=== PATIENT | female | born 1970 | race Caucasian/White ===

== ENCOUNTER 2017-05-19 09:53 | Emergency (ER) | payer BC ==
[2017-05-19 10:16] VITALS: BP 146/86
--- NOTE | 2017-05-19 10:57 | RAD ---
Indication: Left foot pain. 3 views of left foot demonstrates no fracture. No abnormal erosions are noted. IMPRESSION: No fracture of the left foot is noted.
--- NOTE | 2017-05-19 11:58 | UC ---
Lower Extremity/Ankle HPI - HPI Summary HPI Summary: 46 female presents to [facility] with complaints of left foot pain that has been ongoing for the past 3 days. Patient states she has had intermittent foot pains on and off however they have worsened over the past couple of days. Patient states she is walking and on her feet frequently when at work. She admits to swelling. Pain has increased over the past couple of days, making it difficulty for her to bear weight and walk. Patient denies erythema and ecchymosis. No known trauma or injury. No other complaints. No PMHx. Tried taking an aspirin without much relief. Has been icing which helps. Denies numbness/tingling. - History of Current Complaint Chief Complaint: UCLowerExtremity Stated Complaint: LEFT FOOT PAIN Time Seen by Provider: 05/19/17 10:50 Hx Obtained From: Patient Hx Last Menstrual Period: 12/22/13 Onset/Duration: Sudden Onset, Lasting Days, Still Present, Worse Since Severity Initially: Mild Severity Currently: Moderate Pain Intensity: 8 Pain Scale Used: 0-10 Numeric Aggravating Factor(s): Standing, Ambulation Alleviating Factor(s): Rest, Elevation, Ice Able to Bear Weight: Yes - Risk Factors Gout Risk Factors: Age Over 40 DVT Risk Factors: Smoking - previous history over 10 years ago Septic Arthritis Risk Factor: Negative - Allergies/Home Medications Allergies/Adverse Reactions: Allergies Allergy/AdvReac Type Severity Reaction Status Date / Time No Known Allergies Allergy Verified 05/19/17 10:16 Home Medications: Home Medications Omeprazole CAP* [Prilosec CAP* 20 MG] 20 mg PO DAILY 05/19/17 [History Confirmed 05/19/17] Sertraline* [Zoloft*] 25 mg PO DAILY 05/19/17 [History Confirmed 05/19/17] PMH/Surg Hx/FS Hx/Imm Hx - Additional Past Medical History Additional PMH: Denies DM, HTN and asthma Hx of brain aneurysm years ago - Surgical History Surgical History: Yes Surgery Procedure, Year, and Place: tubal removal. craniotomy, 2001 - Family History Known Family History: Positive: None - Social History Alcohol Use: Occasionally Substance Use Type: None Smoking Status (MU): Former Smoker Type: Cigarettes Length of Time of Smoking/Using Tobacco: 12 YEARS Have You Smoked in the Last Year: No When Did the Patient Quit Smoking/Using Tobacco: 17 YEARS - Immunization History Most Recent Tetanus Shot: UNKNOWN Vaccination Up to Date: Yes Review of Systems Constitutional: Negative Skin: Negative Respiratory: Negative Cardiovascular: Negative Gastrointestinal: Negative Neurovascular: Negative Musculoskeletal: Arthralgia, Edema - left foot/ankle, Myalgia Neurological: Negative All Other Systems Reviewed And Are Negative: Yes Physical Exam Triage Information Reviewed: Yes Appearance: Well-Appearing, Well-Nourished, Pain Distress - mild with movement or walking on left foot Vital Signs: Initial Vital Signs Temp 98.0 F 05/19/17 10:10 Pulse 101 05/19/17 10:10 Resp 16 05/19/17 10:10 BP 146/86 05/19/17 10:10 Vital Signs Reviewed: Yes Eyes: Positive: Conjunctiva Clear ENT: Positive: Hearing grossly normal Neck: Positive: Supple, Nontender Respiratory: Positive: Chest non-tender, Lungs clear, Normal breath sounds, No respiratory distress, No accessory muscle use Cardiovascular: Positive: RRR, No Murmur, Pulses Normal - 2+ pedal b/l, Brisk Capillary Refill - < 2 sec Musculoskeletal: Positive: Strength Intact, ROM Intact, Edema @ - left lateral foot/ankle, and dorsal foot, tender on palpation of dorsal lateral foot. not hot to touch, no erythema, Other: - negative homans sign, negative thomspon, no erythema, crepitus, step off or obvious signs of deformity/trauma. non tender lower leg. CMS intact Neurological: Positive: Alert, Muscle Tone Normal Skin Exam: Normal Diagnostics - Radiology left foot Xray Interpretation: No Acute Changes - No fracture of the left foot is noted. Radiology Interpretation Completed By: Radiologist Lower Extremity Course/Dx - Course Course Of Treatment: xray obtained and negative. appears to have possible tendonitis or sprain/strain from overuse. no sign of plantar faciitis, gout or dvt. no risk factors. normal PE findings other than tender to palpation, lateral /dorsal foot, along with edema. will treat symptomatically at this time. RICE, NSAIDs, pop wrap and refrain from walking on. offered crutches however patient refused. Aware of worsening signs and symptoms. Encouraged to follow up in 4-5 days. Sooner if needed. No concern for other emergent etiology such as DVT, cellulitis, Gout. No PMHx. - Differential Dx/Diagnosis Differential Diagnosis/HQI/PQRI: Contusion, DVT, Gout, Sprain, Strain, Tendonitis Provider Diagnoses: left foot pain, left foot edema Discharge - Discharge Plan Condition: Stable Disposition: HOME Prescriptions: Naproxen TAB* [Naprosyn 375 mg TAB*] 375 mg PO BID #20 tab Patient Education Materials: Arthralgia (ED), Swollen Joint (ED), Tendinitis ( ED) Forms: *Work Release Referrals: Jack Moreno MD [Primary Care Provider] - Thad Nguyen MD [Medical Doctor] - Additional Instructions: Take naproxen as directed with food for, pain and inflammation. Avoid over use, walking and using foot, try to rest as much as possible. Ice, 20 minutes on and 20 minutes off as frequently as possible. Elevate and compression with pop wrap. Follow up with PCP, ortho or return if symptoms worsen or do not improve, as discussed. Any new or worsening symptoms please seek medical attention promptly.
== END 2017-05-19 12:08 | disposition home or self-care (01) ==
LOC: UCCORT 09:53
DX: M79.672 Pain in left foot (principal); Z87.891 Personal history of nicotine dependence; R60.9 Edema, unspecified
CPT/HCPCS: 99202; G0463